=== PATIENT | female | born 1970 | race Caucasian/White ===

== ENCOUNTER 2017-05-28 16:03 | Emergency (ER) | payer OTHER, BC ==
[2017-05-28 16:03] VITALS: BMI 29.2
[2017-05-28 16:12] VITALS: BP 139/97; PULSE 76; RESP 18; TEMP 98.2; O2SAT 99
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
--- NOTE | 2017-05-28 19:56 | RAD ---
PROCEDURE: Left Knee Radiographs. HISTORY: Pain. COMPARISON: None. FINDINGS: BONES: No acute fracture or destructive bony lesion identified. Distal femoral proximal tibial anchor is seen related to prior ACL replacement. JOINTS: Mild medial compartment narrowing is appreciated without subluxation or dislocation of any of the joint intrinsic to the knee. JOINT EFFUSION: None. OTHER FINDINGS: None. IMPRESSION: No acute fracture subluxation or dislocation left knee. Postop changes suggest prior ACL replacement.
--- NOTE | 2017-05-28 19:57 | RAD ---
PROCEDURE: Cervical Spine Radiographs. HISTORY: Pain. COMPARISON: None. FINDINGS: BONES: Minimal spondylolisthesis appreciated C5-6 with C5 slightly posterior C6 by 2-3 mm. A fracture is not clearly identified and the curvature is slightly straightened. Posterior elements appear intact grossly. The odontoid process appears unremarkable. DISC SPACES: Normal. SOFT TISSUES: Normal. No prevertebral soft tissue swelling. OTHER FINDINGS: None. IMPRESSION: Minimal spondylolisthesis C5-6, potentially degenerative as no fractures appreciable. Cross-sectional imaging can be obtained if clinically warranted. Straightened cervical curvature.
== END 2017-05-28 19:15 | disposition home or self-care (01) ==
LOC: H.ER 16:03
DX: M54.2 Cervicalgia (principal); S89.92XA Unspecified injury of left lower leg, initial encounter; V43.52XA Car driver injured in collision with other type car in traffic accident, initial encounter; Y92.410 Unspecified street and highway as the place of occurrence of the external cause; E03.9 Hypothyroidism, unspecified
CPT/HCPCS: 72040; 73562; 81025; 96372; 99283; J1885